=== PATIENT | female | born 1950 | race Caucasian/White ===

== ENCOUNTER 2018-06-04 02:10 | Inpatient (IN) | payer OTHER ==
[2018-06-04 02:29] LABS: URINE BLOOD (Dip) POC 2+ (NEGATIVE); URINE KETONES (Dip) POC Negative (NEGATIVE); URINE LEUKOCYTE EST (Dip) POC Negative (NEGATIVE); URINE NITRITE (Dip) POC Negative (NEGATIVE); URINE TOTAL PROTEIN POC 3+ (NEGATIVE)
[2018-06-04] MEDS: SOD CHLORIDE 0.9% 1,000 ML IV ×3 (02:32→22:24)
[2018-06-04 02:42] LABS: ABNORMAL IP MESSAGE 1; HEMATOCRIT 23.3 % (37.0-47.0); MEAN CORPUSCULAR HEMOGLOBIN 29.9 pg (29.0-33.0); MEAN CORPUSCULAR VOLUME 99.6 fl (82.0-101.0); MEAN PLATELET VOLUME 11.8 fl (7.4-10.4); NUCLEATED RED BLOOD CELLS% 0.3 /100WBC (0.0-0.0); PLATELET COUNT 248 10^3/UL (140-415); RED BLOOD COUNT 2.34 10^6/ul (4.20-5.40); RED CELL DISTRIBUTION WIDTH 15.7 % (11.5-14.5)
[2018-06-04 02:49] LABS: POSITIVE DIFF @See below
[2018-06-04 02:50] LABS: ADD MAN DIFF? YES
[2018-06-04 03:04] LABS: INR 1.34; PROTIME 16.8 Sec (11.9-14.9); PT RATIO 1.3
[2018-06-04 03:05] LABS: ALANINE AMINOTRANSFERASE 92 IU/L (13-69); ALKALINE PHOSPHATASE 333 IU/L (42-121); ANION GAP 20 (8-16); ASPARTATE AMINO TRANSFERASE 100 IU/L (15-46); BILIRUBIN,INDIRECT 0.8 mg/dl (0-1.1); BILIRUBIN,TOTAL 0.8 mg/dl (0.2-1.3); BLOOD UREA NITROGEN 35 mg/dl (7-20); CALCIUM 8.7 mg/dl (8.4-10.2); CARBON DIOXIDE 14 mmol/L (21-31); CHLORIDE 111 mmol/L (97-110); CREATININE 2.21 mg/dl (0.44-1.00); PARTIAL THROMBOPLASTIN TIME 41.8 Sec (25.0-35.0); POTASSIUM 5.1 mmol/L (3.5-5.1); SODIUM 140 mmol/L (135-144)
[2018-06-04 03:10] LABS: GLUCOSE 477 mg/dl (70-220)
[2018-06-04 03:14] LABS: ADD UMIC YES; UR AMORPHOUS CRYSTAL MANY /HPF (NONE SEEN); UR ASCORBIC ACID 40 mg/dL (NEGATIVE); UR BACTERIA FEW /HPF (NONE SEEN); UR BILIRUBIN (Dip) NEGATIVE (NEGATIVE); UR BLOOD (Dip) NEGATIVE (NEGATIVE); UR CLARITY CLOUDY (CLEAR); UR COLOR AMBER (YELLOW); UR GLUCOSE (Dip) 3+ mg/dL (NEGATIVE); UR KETONES (Dip) NEGATIVE (NEGATIVE); UR LEUKOCYTE ESTERASE (Dip) NEGATIVE Leu/ul (NEGATIVE); UR MUCUS FEW /HPF (NONE SEEN); UR NITRITE (Dip) NEGATIVE (NEGATIVE); UR RBC 8 /HPF (0-5); UR SPECIFIC GRAVITY (Dip) 1.016 (1.003-1.030); UR TOTAL PROTEIN (Dip) 3+ mg/dl (NEGATIVE); UR UROBILINOGEN (Dip) NEGATIVE (NEGATIVE); UR WBC 17 /HPF (0-5)
[2018-06-04 03:15] LABS: TROPONIN-I 0.116 ng/ml (0.000-0.120)
[2018-06-04 03:18] LABS: ANISOCYTOSIS 1+ (0-0); BAND NEUTROPHILS #M 1.9 10^3/ul (0.0-0.6); BAND NEUTROPHILS % (M) 9 % (0-4); BASOPHIL #M 0.6 10^3/ul (0.0-0.0); BASOPHILS % (M) 3 % (0-2); EOSINOPHILS % (M) 3 % (0-7); ERYTHROBLAST% (NRBC) (M) 1 % (0-0); LYMPHOCYTES #M 10.3 10^3/ul (0.8-2.9); LYMPHOCYTES % (M) 47 % (15-51); METAMYELOCYTES #M 0.8 10^3/ul (0.0-0.0); METAMYELOCYTES %M 4 % (0-0); MONOCYTE #M 0.8 10^3/ul (0.3-0.9); MONOCYTES % (M) 4 % (0-11); MYELOCYTES #M 1.1 10^3/ul (0.0-0.0); MYELOCYTES % (M) 5 % (0-0); PLATELET ESTIMATE NORMAL; POIKILOCYTOSIS 2+ (0-0); POLYCHROMASIA 3+ (0-0); SEG NEUT #M 6.1 10^3/ul (1.6-7.5); SEGMENTED NEUTROPHILS (M) % 26 % (39-77); SMUDGE%M 12 % (0-0)
[2018-06-04 03:27] LABS: LACTIC ACID 7.1 mmol/L (0.5-2.0)
[2018-06-04] MEDS: PROPOFOL 100 ML IV ×3 (03:53→17:48)
[2018-06-04] MEDS ORDERED: POTASSIUM CHLORIDE 40 MEQ in SOD CHLORIDE 0.9% 1,000 ML IV (03:58)
[2018-06-04] MEDS ORDERED: POTASSIUM CHLORIDE 30 MEQ in SOD CHLORIDE 0.9% 1,000 ML IV (03:58)
[2018-06-04] MEDS ORDERED: SODIUM CHLORIDE 23.4% 77 MEQ in DEXTROSE 10% 1,000 ML IV (03:58)
[2018-06-04] MEDS ORDERED: SODIUM CHLORIDE 23.4% 77 MEQ, POTASSIUM CHLORIDE 30 MEQ in DEXTROSE 10% 1,000 ML IV (03:58)
[2018-06-04] MEDS ORDERED: SOD CHLORIDE 0.9% 1,000 ML IV (03:58)
[2018-06-04] MEDS ORDERED: SODIUM CHLORIDE 23.4% 77 MEQ, POTASSIUM CHLORIDE 40 MEQ in DEXTROSE 10% 1,000 ML IV (03:58)
[2018-06-04] MEDS ORDERED: INSULIN REGULAR, HUMAN 100 UNIT in SOD CHLORIDE 0.9% 100 ML IV (04:00)
[2018-06-04] MEDS: SODIUM CHLORIDE 0.9% 500 ML BAG IV* (04:00)
[2018-06-04] MEDS ORDERED: DEXTROSE 50% 50 ML SYRINGE IV ×4 (04:00→10:30)
[2018-06-04] MEDS: ROCURONIUM 50 MG INJ IV (04:09)
[2018-06-04 04:17] LABS: AADO2 Arterial 457.2 mmHg (7.0-24.0); Allen Test ACCEPTAB; Arterial Base Excess -13.7 mmol/L (-3.0-3); Arterial Blood Gas Oxygen Sat 98.9 mmHG (95.0-98.0); Arterial COHb 0.6 % (0.0-3.0); Arterial Fraction of Oxyhgb 97.9 % (93.0-99.0); Arterial HCO3 12.9 mmol/L (22.0-26.0); Arterial MetHb 0.4 % (0.0-1.5); Arterial Total Hemglobin 7.5 g/dl (12.0-18.0); Arterial pCO2 32.6 mmhg (35-45); Blood Gas Low PEEP Setting 0 cmH2O; MODE VENT - AC; Site Right Radial
[2018-06-04] MEDS: PIPER-TAZO 2.25 GM (PMX) 50 ML IVPB ×3 (04:52→17:48)
[2018-06-04] MEDS: LACTATED RINGER'S 910 ML IV (05:05)
[2018-06-04 05:26] LABS: LACTIC ACID 4.6 mmol/L (0.5-2.0)
[2018-06-04] MEDS ORDERED: ACETAMINOPHEN 650MG/20.3ML CUP PO (06:30)
[2018-06-04] MEDS ORDERED: ACETAMINOPHEN 650 MG SUPP PR (06:30)
[2018-06-04] MEDS ORDERED: ACETAMINOPHEN 650MG/20.3ML CUP NGT (06:30)
[2018-06-04] MEDS ORDERED: MEPERIDINE 25 MG INJ IV ×2 (06:30)
[2018-06-04 06:36] LABS: Blood Gas Low PEEP Setting 0 cmH2O; MODE VENT - AC; MetHgb Venous 0.4 %; Sample Type Blood venous; Site VENOUS LINE; Temperature 34.8 C; Venous COHb 0.1 %; Venous Fraction OxyHgb 68.9 %; Venous Oxygen Sat 69.2 mmHG (55.0-75.0); Venous Total Hemglobin 7.2 g/dl
[2018-06-04] MEDS: VANCOMYCIN 1 GM (PMX) 250 ML IVPB (07:35)
[2018-06-04] MEDS: ALBUMIN HUMAN 25% 100 ML IV ×2 (08:04→08:37)
[2018-06-04 08:32] LABS: Blood Gas Low PEEP Setting 0 cmH2O; MODE VENT - AC; Sample Type Blood venous; Site VENOUS LINE; Venous COHb 0.3 %; Venous Fraction OxyHgb 46.9 %; Venous Oxygen Sat 47.5 mmHG (55.0-75.0)
[2018-06-04 08:37] LABS: Temperature 32.8 C
[2018-06-04 08:54] LABS: WHITE BLOOD COUNT 21.3 10^3/ul (4.8-10.8)
[2018-06-04 08:54] LABS: ABNORMAL IP MESSAGE 1; HEMATOCRIT 18.2 % (37.0-47.0); MEAN CORPUSCULAR HEMOGLOBIN 30.1 pg (29.0-33.0); MEAN CORPUSCULAR HGB CONC 30.2 g/dl (32.0-37.0); MEAN CORPUSCULAR VOLUME 99.5 fl (82.0-101.0); MEAN PLATELET VOLUME 10.5 fl (7.4-10.4); PLATELET COUNT 170 10^3/UL (140-415); RED BLOOD COUNT 1.83 10^6/ul (4.20-5.40); RED CELL DISTRIBUTION WIDTH 15.5 % (11.5-14.5)
[2018-06-04 09:10] LABS: ANION GAP 14 (8-16); BLOOD UREA NITROGEN 34 mg/dl (7-20); CARBON DIOXIDE 15 mmol/L (21-31); CHLORIDE 117 mmol/L (97-110); CREATINE KINASE 362 IU/L (23-200); CREATININE 2.17 mg/dl (0.44-1.00); GLUCOSE 329 mg/dl (70-220); MAGNESIUM 1.7 mg/dl (1.7-2.5); PHOSPHORUS 5.7 mg/dl (2.5-4.9); POTASSIUM 4.8 mmol/L (3.5-5.1); SODIUM 141 mmol/L (135-144)
[2018-06-04 09:13] LABS: INR 1.38; PROTIME 17.2 Sec (11.9-14.9); PT RATIO 1.3
[2018-06-04 09:14] LABS: C-REACTIVE PROTEIN 7.1 mg/dl (0.0-0.9)
[2018-06-04 09:24] LABS: CK INDEX 2.4; CK-MB 8.86 ng/ml (0.0-2.4)
[2018-06-04 09:27] LABS: TROPONIN-I 0.386 ng/ml (0.000-0.120)
[2018-06-04 09:27] LABS: LACTIC ACID 4.7 mmol/L (0.5-2.0)
[2018-06-04 09:28] LABS: ADD MAN DIFF? YES; HEMOGLOBIN 5.5 g/dl (12.0-16.0); POSITIVE DIFF @See below
[2018-06-04 10:03] LABS: ERYTHROCYTE SEDIMENTATION RATE 121 mm/Hr (0-30)
[2018-06-04 10:11] LABS: IMMEDIATE SPIN CROSSMATCH 1 3
[2018-06-04 10:34] LABS: % IRON SATURATION 17 % SAT (22-52); IRON 40 ug/dl (35-150)
[2018-06-04 10:44] LABS: TOTAL IRON BINDING CAPACITY 240 ug/dl (241-421)
[2018-06-04 10:49] LABS: B-TYPE NATRIURETIC PEPTIDE 5670 PG/ML (0-125)
[2018-06-04 10:59] LABS: ANISOCYTOSIS 1+ (0-0); BAND NEUTROPHILS #M 1.4 10^3/ul (0.0-0.6); BAND NEUTROPHILS % (M) 7 % (0-4); BURR CELLS 1+ (0-0); GIANT THROMBO% (M) 1 % (0-0); LYMPHOCYTES #M 1.2 10^3/ul (0.8-2.9); LYMPHOCYTES % (M) 6 % (15-51); MONOCYTE #M 0.4 10^3/ul (0.3-0.9); MONOCYTES % (M) 2 % (0-11); PLATELET ESTIMATE NORMAL; POIKILOCYTOSIS 1+ (0-0); POLYCHROMASIA 1+ (0-0); SEG NEUT #M 18.4 10^3/ul (1.6-7.5); SEGMENTED NEUTROPHILS (M) % 85 % (39-77); SMUDGE%M 10 % (0-0)
[2018-06-04 11:37] LABS: Arterial Base Excess -13.5 mmol/L (-3.0-3); Arterial Blood Gas Oxygen Sat 97.7 mmHG (95.0-98.0); Arterial COHb 0.6 % (0.0-3.0); Arterial Fraction of Oxyhgb 96.8 % (93.0-99.0); Arterial HCO3 13.2 mmol/L (22.0-26.0); Arterial MetHb 0.3 % (0.0-1.5); Arterial Total Hemglobin 6.5 g/dl (12.0-18.0); MODE VENT - AC; Site A-Line; Temperature 33.4 C
[2018-06-04] MEDS: ARTIFICIAL TEARS 15 ML OPH BOTH EYES ×2 (12:00→17:53)
[2018-06-04] MEDS: OCULAR LUBRICANT 3.5 GM OPH OINT BOTH EYES ×2 (12:00→17:53)
[2018-06-04] MEDS: INSULIN HUMAN REGULAR 100 UNIT in SOD CHLORIDE 0.9% 99 ML IV ×2 (12:14→21:33)
[2018-06-04] MEDS: ACCU-CHEK XX ×14 (12:15→23:47)
[2018-06-04] MEDS: VECURONIUM 100 MG in DEXTROSE 5% 100 ML IV (14:23)
[2018-06-04 14:43] LABS: ADD MAN DIFF? NO
[2018-06-04 14:47] LABS: WHITE BLOOD COUNT 13.9 10^3/ul (4.8-10.8)
[2018-06-04 14:47] LABS: ABNORMAL IP MESSAGE 1; BASOPHILS % 0.1 % (0.0-2.0); HEMATOCRIT 21.6 % (37.0-47.0); LYMPHOCYTES # 0.8 10^3/ul (0.8-2.9); LYMPHOCYTES % 5.6 % (15.0-51.0); MEAN CORPUSCULAR HEMOGLOBIN 30.6 pg (29.0-33.0); MEAN CORPUSCULAR HGB CONC 31.5 g/dl (32.0-37.0); MEAN CORPUSCULAR VOLUME 97.3 fl (82.0-101.0); MEAN PLATELET VOLUME 10.9 fl (7.4-10.4); MONOCYTE # 0.4 10^3/ul (0.3-0.9); MONOCYTES % 2.5 % (0.0-11.0); NEUTROPHIL # 12.7 10^3/ul (1.6-7.5); NEUTROPHILS % 91.3 % (39.0-77.0); PLATELET COUNT 126 10^3/UL (140-415); RED BLOOD COUNT 2.22 10^6/ul (4.20-5.40); RED CELL DISTRIBUTION WIDTH 14.7 % (11.5-14.5)
[2018-06-04 14:48] LABS: POSITIVE DIFF @See below
[2018-06-04 14:54] LABS: HEMOGLOBIN 6.8 g/dl (12.0-16.0)
[2018-06-04 15:09] LABS: CREATINE KINASE 532 IU/L (23-200)
[2018-06-04 15:11] LABS: ANION GAP 17 (8-16); BLOOD UREA NITROGEN 40 mg/dl (7-20); CALCIUM 7.7 mg/dl (8.4-10.2); CARBON DIOXIDE 15 mmol/L (21-31); CHLORIDE 114 mmol/L (97-110); CREATININE 2.59 mg/dl (0.44-1.00); GLUCOSE 253 mg/dl (70-220); MAGNESIUM 1.9 mg/dl (1.7-2.5); PHOSPHORUS 5.8 mg/dl (2.5-4.9); POTASSIUM 4.3 mmol/L (3.5-5.1); SODIUM 142 mmol/L (135-144)
[2018-06-04 15:21] LABS: CK INDEX 2.5
[2018-06-04 15:29] LABS: INR 1.37; PROTIME 17.1 Sec (11.9-14.9); PT RATIO 1.3
[2018-06-04 15:30] LABS: PARTIAL THROMBOPLASTIN TIME 31.8 Sec (25.0-35.0)
[2018-06-04 17:22] LABS: AADO2 Arterial 270.3 mmHg (7.0-24.0); Arterial Base Excess -12.5 mmol/L (-3.0-3); Arterial Blood Gas Oxygen Sat 96.1 mmHG (95.0-98.0); Arterial COHb 0.5 % (0.0-3.0); Arterial Fraction of Oxyhgb 95.4 % (93.0-99.0); Arterial HCO3 12.9 mmol/L (22.0-26.0); Arterial MetHb 0.2 % (0.0-1.5); Arterial Total Hemglobin 8.5 g/dl (12.0-18.0); Arterial pCO2 22.8 mmhg (35-45); MODE VENT - AC; Site A-Line; Temperature 32.4 C
[2018-06-04 18:05] LABS: HEMATOCRIT 21.7 % (37.0-47.0); HEMOGLOBIN 7.1 g/dl (12.0-16.0)
[2018-06-04 19:57] LABS: ADD MAN DIFF? NO
[2018-06-04 20:00] LABS: BASOPHILS % 0.1 % (0.0-2.0); HEMATOCRIT 24.8 % (37.0-47.0); HEMOGLOBIN 8.2 g/dl (12.0-16.0); LYMPHOCYTES # 0.8 10^3/ul (0.8-2.9); LYMPHOCYTES % 6.1 % (15.0-51.0); MEAN CORPUSCULAR HEMOGLOBIN 30.5 pg (29.0-33.0); MEAN CORPUSCULAR HGB CONC 33.1 g/dl (32.0-37.0); MEAN CORPUSCULAR VOLUME 92.2 fl (82.0-101.0); MEAN PLATELET VOLUME 10.2 fl (7.4-10.4); MONOCYTE # 0.9 10^3/ul (0.3-0.9); MONOCYTES % 6.8 % (0.0-11.0); NEUTROPHIL # 11.9 10^3/ul (1.6-7.5); NEUTROPHILS % 86.3 % (39.0-77.0); PLATELET COUNT 126 10^3/UL (140-415); RED BLOOD COUNT 2.69 10^6/ul (4.20-5.40); RED CELL DISTRIBUTION WIDTH 14.6 % (11.5-14.5)
[2018-06-04 20:00] LABS: WHITE BLOOD COUNT 13.8 10^3/ul (4.8-10.8)
[2018-06-04 20:29] LABS: CREATINE KINASE 504 IU/L (23-200)
[2018-06-04 20:41] LABS: CK INDEX 2.8
[2018-06-05 00:23] LABS: ADD MAN DIFF? NO
[2018-06-05] MEDS: ARTIFICIAL TEARS 15 ML OPH BOTH EYES ×5 (00:24→23:34)
[2018-06-05 00:25] LABS: BASOPHILS % 0.1 % (0.0-2.0); EOSINOPHILS % 0.1 % (0.0-7.0); HEMATOCRIT 23.9 % (37.0-47.0); HEMOGLOBIN 8.1 g/dl (12.0-16.0); LYMPHOCYTES % 7.8 % (15.0-51.0); MEAN CORPUSCULAR HEMOGLOBIN 30.7 pg (29.0-33.0); MEAN CORPUSCULAR HGB CONC 33.9 g/dl (32.0-37.0); MEAN CORPUSCULAR VOLUME 90.5 fl (82.0-101.0); MEAN PLATELET VOLUME 10.7 fl (7.4-10.4); MONOCYTE # 0.9 10^3/ul (0.3-0.9); MONOCYTES % 7.5 % (0.0-11.0); NEUTROPHIL # 10.5 10^3/ul (1.6-7.5); PLATELET COUNT 125 10^3/UL (140-415); RED BLOOD COUNT 2.64 10^6/ul (4.20-5.40); RED CELL DISTRIBUTION WIDTH 14.7 % (11.5-14.5)
[2018-06-05 00:25] LABS: WHITE BLOOD COUNT 12.5 10^3/ul (4.8-10.8)
[2018-06-05] MEDS: OCULAR LUBRICANT 3.5 GM OPH OINT BOTH EYES ×5 (00:25→23:34)
[2018-06-05] MEDS: PIPER-TAZO 2.25 GM (PMX) 50 ML IVPB ×4 (00:28→21:35)
[2018-06-05 00:31] LABS: AADO2 Arterial 252.9 mmHg (7.0-24.0); Arterial Blood Gas Oxygen Sat 97.2 mmHG (95.0-98.0); Arterial COHb 0 % (0.0-3.0); Arterial Fraction of Oxyhgb 97.1 % (93.0-99.0); Arterial HCO3 14.2 mmol/L (22.0-26.0); Arterial MetHb 0.1 % (0.0-1.5); Arterial pCO2 21.7 mmhg (35-45); MODE VENT - AC; Site A-Line; Temperature 32.8 C
[2018-06-05] MEDS: ACCU-CHEK XX ×24 (00:38→23:44)
[2018-06-05 00:44] LABS: INR 1.27; PROTIME 16.1 Sec (11.9-14.9); PT RATIO 1.3
[2018-06-05 00:45] LABS: ANION GAP 13 (8-16); BLOOD UREA NITROGEN 42 mg/dl (7-20); CALCIUM 7.9 mg/dl (8.4-10.2); CARBON DIOXIDE 18 mmol/L (21-31); CHLORIDE 114 mmol/L (97-110); CREATININE 2.75 mg/dl (0.44-1.00); GLUCOSE 100 mg/dl (70-220); MAGNESIUM 1.9 mg/dl (1.7-2.5); PARTIAL THROMBOPLASTIN TIME 38.7 Sec (25.0-35.0); SODIUM 141 mmol/L (135-144)
[2018-06-05] MEDS: PROPOFOL 100 ML IV ×3 (00:46→19:32)
[2018-06-05 01:39] LABS: CREATINE KINASE 388 IU/L (23-200)
[2018-06-05 01:52] LABS: CK INDEX 3.4
[2018-06-05] MEDS: ALBUMIN HUMAN 25% 100 ML IV ×4 (01:53→03:14)
[2018-06-05] MEDS: PANTOPRAZOLE 40 MG INJ IV (05:19)
[2018-06-05 05:58] LABS: AADO2 Arterial 230.9 mmHg (7.0-24.0); Arterial Base Excess -10.1 mmol/L (-3.0-3); Arterial COHb 0.3 % (0.0-3.0); Arterial Fraction of Oxyhgb 97.5 % (93.0-99.0); Arterial HCO3 13.9 mmol/L (22.0-26.0); Arterial MetHb 0.2 % (0.0-1.5); Arterial Total Hemglobin 9.8 g/dl (12.0-18.0); Arterial pCO2 20.6 mmhg (35-45); MODE VENT - AC; Site A-Line; Temperature 32.7 C
[2018-06-05] MEDS: FUROSEMIDE 40 MG INJ IV ×2 (06:26→12:29)
[2018-06-05] MEDS: ACETAMINOPHEN 650 MG SUPP PR ×4 (06:30→23:44)
[2018-06-05 06:36] LABS: INR 1.41; PROTIME 17.5 Sec (11.9-14.9); PT RATIO 1.4
[2018-06-05 06:37] LABS: PARTIAL THROMBOPLASTIN TIME 38.8 Sec (25.0-35.0)
[2018-06-05] MEDS: ACETAMINOPHEN 650MG/20.3ML CUP PO ×4 (06:39→23:36)
[2018-06-05 06:47] LABS: LACTIC ACID 0.8 mmol/L (0.5-2.0)
[2018-06-05 06:48] LABS: MAGNESIUM 1.9 mg/dl (1.7-2.5)
[2018-06-05 06:48] LABS: PHOSPHORUS 5.8 mg/dl (2.5-4.9)
[2018-06-05 07:06] LABS: ALANINE AMINOTRANSFERASE 56 IU/L (13-69); ALBUMIN 3.3 g/dl (3.3-4.9); ALBUMIN/GLOBULIN RATIO 1.17; ALKALINE PHOSPHATASE 145 IU/L (42-121); ANION GAP 18 (8-16); ASPARTATE AMINO TRANSFERASE 61 IU/L (15-46); BILIRUBIN,INDIRECT 0.6 mg/dl (0-1.1); BILIRUBIN,TOTAL 1.1 mg/dl (0.2-1.3); BLOOD UREA NITROGEN 44 mg/dl (7-20); CALCIUM 7.8 mg/dl (8.4-10.2); CARBON DIOXIDE 15 mmol/L (21-31); CHLORIDE 114 mmol/L (97-110); CREATININE 2.83 mg/dl (0.44-1.00); GLUCOSE 88 mg/dl (70-220); SODIUM 143 mmol/L (135-144); TOTAL PROTEIN 6.1 g/dl (6.1-8.1)
[2018-06-05 07:08] LABS: ADD MAN DIFF? NO; FREE THYROXINE INDEX (Calc) 1.83 ug/ml (0.65-3.89); T3 UPTAKE 42.5 % (23.5-40.5); T4 (THYROXINE) 4.3 ug/dl (5.5-11.0)
[2018-06-05 07:09] LABS: WHITE BLOOD COUNT 9.9 10^3/ul (4.8-10.8)
[2018-06-05 07:09] LABS: BASOPHILS % 0.2 % (0.0-2.0); EOSINOPHILS # 0.1 10^3/ul (0.0-0.5); EOSINOPHILS % 0.8 % (0.0-7.0); HEMATOCRIT 22.2 % (37.0-47.0); HEMOGLOBIN 7.5 g/dl (12.0-16.0); LYMPHOCYTES # 0.9 10^3/ul (0.8-2.9); LYMPHOCYTES % 9.5 % (15.0-51.0); MEAN CORPUSCULAR HEMOGLOBIN 30.7 pg (29.0-33.0); MEAN CORPUSCULAR HGB CONC 33.8 g/dl (32.0-37.0); MEAN PLATELET VOLUME 10.8 fl (7.4-10.4); MONOCYTE # 0.6 10^3/ul (0.3-0.9); MONOCYTES % 6.5 % (0.0-11.0); NEUTROPHIL # 8.2 10^3/ul (1.6-7.5); NEUTROPHILS % 82.5 % (39.0-77.0); PLATELET COUNT 107 10^3/UL (140-415); RED BLOOD COUNT 2.44 10^6/ul (4.20-5.40); RED CELL DISTRIBUTION WIDTH 15.2 % (11.5-14.5)
[2018-06-05] MEDS: ASPIRIN 81 MG TAB NGT (09:33)
[2018-06-05] MEDS: hydrALAzine 20 MG INJ IV (09:52)
[2018-06-05 11:55] LABS: ADD MAN DIFF? NO
[2018-06-05 11:56] LABS: WHITE BLOOD COUNT 14.4 10^3/ul (4.8-10.8)
[2018-06-05 11:56] LABS: BASOPHILS % 0.3 % (0.0-2.0); EOSINOPHILS # 0.1 10^3/ul (0.0-0.5); EOSINOPHILS % 0.8 % (0.0-7.0); HEMATOCRIT 28.6 % (37.0-47.0); HEMOGLOBIN 9.6 g/dl (12.0-16.0); LYMPHOCYTES # 0.9 10^3/ul (0.8-2.9); LYMPHOCYTES % 6.3 % (15.0-51.0); MEAN CORPUSCULAR HEMOGLOBIN 30.8 pg (29.0-33.0); MEAN CORPUSCULAR HGB CONC 33.6 g/dl (32.0-37.0); MEAN CORPUSCULAR VOLUME 91.7 fl (82.0-101.0); MEAN PLATELET VOLUME 10.9 fl (7.4-10.4); MONOCYTE # 0.7 10^3/ul (0.3-0.9); MONOCYTES % 4.5 % (0.0-11.0); NEUTROPHIL # 12.6 10^3/ul (1.6-7.5); NEUTROPHILS % 87.5 % (39.0-77.0); PLATELET COUNT 129 10^3/UL (140-415); RED BLOOD COUNT 3.12 10^6/ul (4.20-5.40); RED CELL DISTRIBUTION WIDTH 15.5 % (11.5-14.5)
[2018-06-05 12:17] LABS: INR 1.39; PROTIME 17.3 Sec (11.9-14.9); PT RATIO 1.4
[2018-06-05 12:18] LABS: PARTIAL THROMBOPLASTIN TIME 37.1 Sec (25.0-35.0)
[2018-06-05 12:21] LABS: ANION GAP 18 (8-16); BLOOD UREA NITROGEN 44 mg/dl (7-20); CALCIUM 7.5 mg/dl (8.4-10.2); CARBON DIOXIDE 15 mmol/L (21-31); CHLORIDE 115 mmol/L (97-110); CREATININE 2.93 mg/dl (0.44-1.00); GLUCOSE 154 mg/dl (70-220); MAGNESIUM 1.8 mg/dl (1.7-2.5); PHOSPHORUS 6.2 mg/dl (2.5-4.9); POTASSIUM 4.3 mmol/L (3.5-5.1); SODIUM 144 mmol/L (135-144)
[2018-06-05 12:31] LABS: AADO2 Arterial 198.4 mmHg (7.0-24.0); Arterial Blood Gas Oxygen Sat 90.1 mmHG (95.0-98.0); Arterial COHb 0.3 % (0.0-3.0); Arterial Fraction of Oxyhgb 89.6 % (93.0-99.0); Arterial HCO3 12.4 mmol/L (22.0-26.0); Arterial MetHb 0.2 % (0.0-1.5); Arterial Total Hemglobin 10.2 g/dl (12.0-18.0); Arterial pCO2 30.3 mmhg (35-45); MODE VENT - AC; Site A-Line; Temperature 33.9 C
[2018-06-05] MEDS: SODIUM BICARBONATE (IV ADD) 150 MEQ in DEXTROSE 5% 1,000 ML IV (13:36)
[2018-06-05 18:13] LABS: AADO2 Arterial 248.6 mmHg (7.0-24.0); Arterial Base Excess -11.9 mmol/L (-3.0-3); Arterial Blood Gas Oxygen Sat 96.3 mmHG (95.0-98.0); Arterial COHb 0.1 % (0.0-3.0); Arterial HCO3 12.8 mmol/L (22.0-26.0); Arterial MetHb 0.2 % (0.0-1.5); Arterial Total Hemglobin 9.5 g/dl (12.0-18.0); MODE VENT - AC; Site A-Line; Temperature 35.7 C
[2018-06-05 18:53] LABS: ADD MAN DIFF? NO
[2018-06-05 18:55] LABS: BASOPHILS % 0.1 % (0.0-2.0); EOSINOPHILS % 0.3 % (0.0-7.0); HEMATOCRIT 25.4 % (37.0-47.0); HEMOGLOBIN 8.5 g/dl (12.0-16.0); LYMPHOCYTES # 0.9 10^3/ul (0.8-2.9); LYMPHOCYTES % 5.9 % (15.0-51.0); MEAN CORPUSCULAR HEMOGLOBIN 30.5 pg (29.0-33.0); MEAN CORPUSCULAR HGB CONC 33.5 g/dl (32.0-37.0); MEAN PLATELET VOLUME 11.2 fl (7.4-10.4); MONOCYTE # 0.8 10^3/ul (0.3-0.9); MONOCYTES % 5.2 % (0.0-11.0); NEUTROPHIL # 12.9 10^3/ul (1.6-7.5); NEUTROPHILS % 87.8 % (39.0-77.0); NUCLEATED RED BLOOD CELLS% 0.1 /100WBC (0.0-0.0); PLATELET COUNT 137 10^3/UL (140-415); RED BLOOD COUNT 2.79 10^6/ul (4.20-5.40); RED CELL DISTRIBUTION WIDTH 15.7 % (11.5-14.5)
[2018-06-05 18:55] LABS: WHITE BLOOD COUNT 14.7 10^3/ul (4.8-10.8)
[2018-06-05 19:20] LABS: ANION GAP 16 (8-16); BLOOD UREA NITROGEN 46 mg/dl (7-20); CALCIUM 7.5 mg/dl (8.4-10.2); CARBON DIOXIDE 16 mmol/L (21-31); CHLORIDE 114 mmol/L (97-110); CREATININE 3.09 mg/dl (0.44-1.00); GLUCOSE 164 mg/dl (70-220); INR 1.38; MAGNESIUM 1.8 mg/dl (1.7-2.5); PARTIAL THROMBOPLASTIN TIME 34.4 Sec (25.0-35.0); PHOSPHORUS 6.3 mg/dl (2.5-4.9); POTASSIUM 4.6 mmol/L (3.5-5.1); PROTIME 17.2 Sec (11.9-14.9); PT RATIO 1.3; SODIUM 141 mmol/L (135-144)
[2018-06-05 19:35] LABS: TROPONIN-I 0.851 ng/ml (0.000-0.120)
[2018-06-05] MEDS: INSULIN HUMAN REGULAR 100 UNIT in SOD CHLORIDE 0.9% 99 ML IV (21:13)
[2018-06-06] MEDS: PROPOFOL 100 ML IV ×6 (00:14→20:49)
[2018-06-06 00:23] LABS: AADO2 Arterial 232.6 mmHg (7.0-24.0); Arterial Base Excess -10.2 mmol/L (-3.0-3); Arterial Blood Gas Oxygen Sat 96.5 mmHG (95.0-98.0); Arterial COHb 0.1 % (0.0-3.0); Arterial Fraction of Oxyhgb 96.2 % (93.0-99.0); Arterial HCO3 14.6 mmol/L (22.0-26.0); Arterial MetHb 0.2 % (0.0-1.5); Arterial Total Hemglobin 10.9 g/dl (12.0-18.0); Arterial pCO2 29.2 mmhg (35-45); MODE VENT - AC; Site A-Line; Temperature 37.2 C
[2018-06-06 00:49] LABS: ADD MAN DIFF? NO
[2018-06-06 00:50] LABS: BASOPHILS % 0.2 % (0.0-2.0); EOSINOPHILS # 0.1 10^3/ul (0.0-0.5); EOSINOPHILS % 0.9 % (0.0-7.0); HEMATOCRIT 25.9 % (37.0-47.0); HEMOGLOBIN 8.7 g/dl (12.0-16.0); LYMPHOCYTES # 1.1 10^3/ul (0.8-2.9); MEAN CORPUSCULAR HEMOGLOBIN 30.1 pg (29.0-33.0); MEAN CORPUSCULAR HGB CONC 33.6 g/dl (32.0-37.0); MEAN CORPUSCULAR VOLUME 89.6 fl (82.0-101.0); MEAN PLATELET VOLUME 11.5 fl (7.4-10.4); MONOCYTES % 6.5 % (0.0-11.0); NEUTROPHIL # 13.4 10^3/ul (1.6-7.5); NEUTROPHILS % 84.7 % (39.0-77.0); NUCLEATED RED BLOOD CELLS # 0.1 10^3/ul (0.0-0.0); NUCLEATED RED BLOOD CELLS% 0.3 /100WBC (0.0-0.0); PLATELET COUNT 143 10^3/UL (140-415); RED BLOOD COUNT 2.89 10^6/ul (4.20-5.40); RED CELL DISTRIBUTION WIDTH 16.2 % (11.5-14.5)
[2018-06-06 00:50] LABS: WHITE BLOOD COUNT 15.8 10^3/ul (4.8-10.8)
[2018-06-06] MEDS: ACCU-CHEK XX ×11 (01:05→17:06)
[2018-06-06 01:15] LABS: ANION GAP 18 (8-16); BLOOD UREA NITROGEN 46 mg/dl (7-20); CALCIUM 7.6 mg/dl (8.4-10.2); CARBON DIOXIDE 16 mmol/L (21-31); CHLORIDE 111 mmol/L (97-110); CREATININE 3.42 mg/dl (0.44-1.00); GLUCOSE 108 mg/dl (70-220); MAGNESIUM 1.8 mg/dl (1.7-2.5); POTASSIUM 4.3 mmol/L (3.5-5.1); SODIUM 141 mmol/L (135-144)
[2018-06-06 01:20] LABS: PHOSPHORUS 6.5 mg/dl (2.5-4.9)
[2018-06-06 01:24] LABS: INR 1.43; PARTIAL THROMBOPLASTIN TIME 35.5 Sec (25.0-35.0); PROTIME 17.7 Sec (11.9-14.9); PT RATIO 1.4
[2018-06-06 01:27] LABS: TROPONIN-I 0.986 ng/ml (0.000-0.120)
[2018-06-06] MEDS: NA BICARBONATE 8.4% 50 ML SYG IV (02:29)
[2018-06-06 05:06] LABS: ADD MAN DIFF? NO
[2018-06-06] MEDS: SODIUM BICARBONATE (IV ADD) 150 MEQ in DEXTROSE 5% 1,000 ML IV (05:10)
[2018-06-06 05:18] LABS: WHITE BLOOD COUNT 15.5 10^3/ul (4.8-10.8)
[2018-06-06 05:18] LABS: BASOPHILS % 0.2 % (0.0-2.0); EOSINOPHILS # 0.2 10^3/ul (0.0-0.5); EOSINOPHILS % 1.1 % (0.0-7.0); HEMATOCRIT 25.3 % (37.0-47.0); HEMOGLOBIN 8.4 g/dl (12.0-16.0); LYMPHOCYTES % 6.5 % (15.0-51.0); MEAN CORPUSCULAR HEMOGLOBIN 30.1 pg (29.0-33.0); MEAN CORPUSCULAR HGB CONC 33.2 g/dl (32.0-37.0); MEAN CORPUSCULAR VOLUME 90.7 fl (82.0-101.0); MEAN PLATELET VOLUME 11.7 fl (7.4-10.4); MONOCYTE # 1.1 10^3/ul (0.3-0.9); NEUTROPHIL # 13.1 10^3/ul (1.6-7.5); NEUTROPHILS % 84.4 % (39.0-77.0); NUCLEATED RED BLOOD CELLS # 0.1 10^3/ul (0.0-0.0); NUCLEATED RED BLOOD CELLS% 0.3 /100WBC (0.0-0.0); PLATELET COUNT 148 10^3/UL (140-415); RED BLOOD COUNT 2.79 10^6/ul (4.20-5.40); RED CELL DISTRIBUTION WIDTH 16.1 % (11.5-14.5)
[2018-06-06 05:32] LABS: INR 1.34; PROTIME 16.8 Sec (11.9-14.9); PT RATIO 1.3
[2018-06-06 05:33] LABS: PARTIAL THROMBOPLASTIN TIME 34.8 Sec (25.0-35.0)
[2018-06-06 05:38] LABS: LACTIC ACID 1.2 mmol/L (0.5-2.0); PHOSPHORUS 6.9 mg/dl (2.5-4.9); URIC ACID 6.8 mg/dl (3.1-7.9)
[2018-06-06 05:38] LABS: CREATINE KINASE 111 IU/L (23-200); MAGNESIUM 1.8 mg/dl (1.7-2.5)
[2018-06-06 05:42] LABS: ALBUMIN/GLOBULIN RATIO 1.23; ANION GAP 16 (8-16); BILIRUBIN,TOTAL 0.4 mg/dl (0.2-1.3)
[2018-06-06 05:47] LABS: CARBON DIOXIDE 19 mmol/L (21-31); CHLORIDE 112 mmol/L (97-110); GLUCOSE 102 mg/dl (70-220); POTASSIUM 4.4 mmol/L (3.5-5.1); SODIUM 143 mmol/L (135-144)
[2018-06-06 05:50] LABS: ALANINE AMINOTRANSFERASE 51 IU/L (13-69); ALBUMIN 3.2 g/dl (3.3-4.9); ALKALINE PHOSPHATASE 150 IU/L (42-121); ASPARTATE AMINO TRANSFERASE 62 IU/L (15-46); BILIRUBIN,INDIRECT 0.4 mg/dl (0-1.1); BLOOD UREA NITROGEN 47 mg/dl (7-20); CALCIUM 7.6 mg/dl (8.4-10.2); CREATININE 3.74 mg/dl (0.44-1.00); TOTAL PROTEIN 5.8 g/dl (6.1-8.1)
[2018-06-06 05:50] LABS: TROPONIN-I 0.927 ng/ml (0.000-0.120)
[2018-06-06 05:53] LABS: AADO2 Arterial 206.1 mmHg (7.0-24.0); Arterial Base Excess -9.4 mmol/L (-3.0-3); Arterial Blood Gas Oxygen Sat 97.8 mmHG (95.0-98.0); Arterial COHb 0.4 % (0.0-3.0); Arterial Fraction of Oxyhgb 97.1 % (93.0-99.0); Arterial HCO3 15.1 mmol/L (22.0-26.0); Arterial MetHb 0.3 % (0.0-1.5); Arterial Total Hemglobin 12.5 g/dl (12.0-18.0); Arterial pCO2 29.1 mmhg (35-45); MODE VENT - AC; Site A-Line
[2018-06-06] MEDS: ACETAMINOPHEN 650 MG SUPP PR ×2 (06:30→12:19)
[2018-06-06] MEDS: ACETAMINOPHEN 650MG/20.3ML CUP PO ×2 (06:57→12:19)
[2018-06-06] MEDS: PIPER-TAZO 2.25 GM (PMX) 50 ML IVPB ×2 (06:57→14:00)
[2018-06-06] MEDS: OCULAR LUBRICANT 3.5 GM OPH OINT BOTH EYES ×3 (06:57→17:06)
[2018-06-06] MEDS: ARTIFICIAL TEARS 15 ML OPH BOTH EYES ×3 (06:57→17:05)
[2018-06-06] MEDS: PANTOPRAZOLE 40 MG INJ IV (06:57)
[2018-06-06] MEDS ORDERED: CHLOROTHIAZIDE 500 MG INJ IV (08:30)
[2018-06-06] MEDS: FUROSEMIDE 100 MG INJ IV (09:34)
[2018-06-06] MEDS: ASPIRIN 81 MG TAB NGT (09:34)
[2018-06-06] MEDS: METOPROLOL 25 MG TAB PO ×2 (09:36→20:49)
[2018-06-06] MEDS: CHLOROTHIAZIDE 500 MG in SOD CHLORIDE 0.9% 50 ML IVPB (11:12)
[2018-06-06] MEDS: INSULIN GLARGINE [LANTus] (100 UNITS/ML) SYG SC (12:18)
[2018-06-06] MEDS: ALBUTEROL/IPRATROPIUM (NEB) 3 ML AMP NEB (14:43)
[2018-06-06 16:38] LABS: SODIUM,URINE RANDOM 89 mmol/L (30-90)
[2018-06-06 16:40] LABS: CREATININE,URINE RANDOM 35.78 mg/dl (20-320)
[2018-06-06 16:48] LABS: PROTEIN/CREAT RATIO 7.18 RATIO
[2018-06-06] MEDS: FUROSEMIDE 40 MG INJ IV (17:06)
== END 2018-06-06 21:01 | disposition short-term general hospital (02) | DRG 208 ==
LOC: E/R 02:10 → ICU 09:52
PROVIDERS: Family Medicine
PROC: 5A1945Z Respiratory Ventilation, 24-96 Consecutive Hours (ICD-10-PCS; principal; 2018-06-04)
PROC: 5A12012 Performance of Cardiac Output, Single, Manual (ICD-10-PCS; 2018-06-04)
PROC: 06HY33Z Insertion of Infusion Device into Lower Vein, Percutaneous Approach (ICD-10-PCS; 2018-06-04)
DX: J96.21 Acute and chronic respiratory failure with hypoxia (principal); J18.9 Pneumonia, unspecified organism; I46.9 Cardiac arrest, cause unspecified; I21.A1 Myocardial infarction type 2; I50.33 Acute on chronic diastolic (congestive) heart failure; E11.10 Type 2 diabetes mellitus with ketoacidosis without coma; G93.1 Anoxic brain damage, not elsewhere classified; N18.4 Chronic kidney disease, stage 4 (severe); N17.9 Acute kidney failure, unspecified; I13.0 Hypertensive heart and chronic kidney disease with heart failure and stage 1 through stage 4 chronic kidney disease, or unspecified chronic kidney disease; N39.0 Urinary tract infection, site not specified; E11.22 Type 2 diabetes mellitus with diabetic chronic kidney disease; E11.21 Type 2 diabetes mellitus with diabetic nephropathy; E11.65 Type 2 diabetes mellitus with hyperglycemia; Y95 Nosocomial condition; Z99.2 Dependence on renal dialysis; Z79.4 Long term (current) use of insulin; Z79.84 Long term (current) use of oral hypoglycemic drugs
CPT/HCPCS: 31500; 36415; 36430; 36600; 70450; 71045; 74176; 76775; 80048; 80053; 81001; 81003; 82550; 82553; 82570; 82728; 82803; 82962; 83036; 83540; 83605; 83735; 83880; 84100; 84145; 84300; 84436; 84479; 84484; 84560; 85014; 85018; 85025; 85610; 85651; 85730; 86140; 86644; 86850; 86900; 86901; 86920; 86945; 87040; 87081; 87086; 89190; 93005; 93306; 93308; 94002; 94003; 94664; 94770; 96361; 96374; 99291-25